=== PATIENT | male | born 1965 | race Caucasian/White ===

== ENCOUNTER 2019-08-27 07:32 | Day surgery (SDC) | payer BC, OTHER ==
[~2019-08-27 07:32] MED LIST: Midazolam 1 MG/ML 2 ML SDV ONE; Propofol 200 MG/20 ML SDV ONE; fentaNYL 100 MCG/2 ML SDV ONE
[2019-08-27] MEDS ORDERED: Dextrose 5%-Lactated Ringers 1,000 ML IV SCH (08:00)
[2019-08-27 10:28] VITALS: BP 106/75; PULSE 64
--- NOTE | 2019-09-03 14:10 | OR ---
DATE OF PROCEDURE: 08/27/2019 SURGEON: Herber Matute MD PREOPERATIVE DIAGNOSIS: Family history of colon carcinoma. POSTOPERATIVE DIAGNOSES: 1. Family history of colon carcinoma. 2. Normal colonoscopic examination. OPERATIVE PROCEDURE: Flexible colonoscopy. ANESTHESIA: IV sedation. INDICATION FOR PROCEDURE: This is a 54-year-old presenting with extensive family history of colon carcinoma. Plan is to proceed with flexible colonoscopy with biopsies and/or polypectomy as indicated. Potential risks including bleeding and perforation were discussed, and the patient wishes to proceed. DETAILS OF PROCEDURE: The patient was taken to the operating room, placed in a left lateral decubitus position. IV sedation was administered after which the initial digital rectal exam performed was unremarkable. The colonoscope was then passed into the rectum with retroflexion revealing uncomplicated hemorrhoidal columns. The scope was eventually passed to the level of the cecum. The prep was fairly good with only a small amount of liquid stool being present. To that level, no abnormalities were noted. Specifically, there were no areas of colitis. No diverticula and/or polyps or other signs of neoplasia. The scope was then withdrawn and the above findings reconfirmed, and the procedure then concluded. Given the patient's family history, the next colonoscopy should be scheduled in 5 years. Herber Matute MD /[id number]
== END 2019-08-27 10:29 | disposition home or self-care (01) ==
LOC: JP.SDS 07:32
PROVIDERS: ATTEND Surgery
DX: Z12.11 Encounter for screening for malignant neoplasm of colon (principal); K64.9 Unspecified hemorrhoids; Z80.0 Family history of malignant neoplasm of digestive organs
CPT/HCPCS: 45378; J2250; J2704; J3010; J7121

== ENCOUNTER 2021-03-24 06:28 | Day surgery (SDC) | payer OTHER ==
[2021-03-24] MEDS ORDERED: Sodium Chloride 0.9% 1,000 ML IV SCH (07:00)
[2021-03-24] MEDS ORDERED: Propofol 200 MG/20 ML SDV ONE (07:19)
[2021-03-24] MEDS ORDERED: Midazolam 1 MG/ML 2 ML SDV ONE (07:19)
[2021-03-24] MEDS ORDERED: fentaNYL 100 MCG/2 ML SDV ONE (07:19)
[2021-03-24 08:57] VITALS: BP 107/71; PULSE 74
--- NOTE | 2021-03-24 11:27 | OR ---
DATE OF PROCEDURE: 03/24/2021 SURGEON: Philip Cerda MD PROCEDURE: Colonoscopy. FINDINGS: 1. Inflammation in the rectum extending into the colon, concerning for possible colitis (biopsied in sigmoid colon and in the rectum). 2. Active petechiae type bleeding in the aforementioned area. 3. No masses in this area. 4. Ascending colon polyp, completely removed using cold biopsy forceps. COMPLICATIONS: None. CHEF DE CUISINE: None. PREOPERATIVE DIAGNOSIS: GI bleeding. POSTOPERATIVE DIAGNOSIS: GI bleeding. RISKS: Risks, benefits, alternatives, and limitations including, but not limited to infection, bleeding, perforation, false positives and false negatives were explained to the patient who wished to proceed. PROCEDURE IN DETAIL: Patient was placed in left lateral decubitus position. Digital rectal exam was performed without abnormality. Scope was introduced and advanced atraumatically to ileocecal valve. A photo was taken. The scope was brought back to the ascending, transverse, descending colon, and retroflexed. No evidence of old blood. No masses. The patient did have about a 3-mm polyp in the ascending colon that was completely removed using cold biopsy forceps. In the sigmoid colon and rectum, the patient had inflammation consistent with colitis. This was biopsied in multiple locations using cold biopsy forceps. No mass or significant hemorrhoids noted. The patient tolerated procedure well. Greater than 8 minutes was spent removing the scope. Prep was acceptable, approximately 90% of luminal surface could be seen. Philip Cerda MD /[id number]
== END 2021-03-24 09:23 | disposition home or self-care (01) ==
LOC: JP.SDS 06:28
PROVIDERS: ATTEND Surgery
DX: D12.4 Benign neoplasm of descending colon (principal); K63.89 Other specified diseases of intestine; K62.89 Other specified diseases of anus and rectum; Z88.0 Allergy status to penicillin; Z88.2 Allergy status to sulfonamides
CPT/HCPCS: 45380; J2250; J2704; J3010; J7030